=== PATIENT | female | born 1985 | race Hispanic/Latino ===

== ENCOUNTER 2018-10-16 12:16 | Emergency (ER) | payer SELFPAY ==
[~2018-10-16] VITALS: Ht 162.6 cm; Wt 95.0 kg
[2018-10-16] MEDS ORDERED: METFORMIN850 MG PO (12:39)
[2018-10-16] MEDS ORDERED: DELTASONE20 MG PO (13:41)
[2018-10-16 13:47] VITALS: BP 112/68
== END 2018-10-16 13:54 | disposition home or self-care (01) | DRG 607 ==
LOC: ED 12:16
DX: L50.0 Allergic urticaria (principal); R06.02 Shortness of breath; R07.9 Chest pain, unspecified